=== PATIENT | male | born 1945 | race Caucasian/White ===

== ENCOUNTER → 2017-10-30 | Outpatient (CLI) | payer MEDICARE ==
[~2017-10-30] MED LIST: AMLO5TAB2 PO; ATOR10TA15 PO; DORZ2SOL15 EACH EYE; HYDR12.57 PO; LATA0.002 EACH EYE
[2017-10-30 07:56] LABS: AST (GOT) 28 U/L (15-37); BLOOD UREA NITROGEN 18 MG/DL (7-18); GLOMERULAR FILTRATION RATE 83 ML/MIN (>89); GLUCOSE,FASTING 105 MG/DL (74-99); SODIUM (NA) 138 MEQ/L (136-145)
[2017-10-30 07:57] LABS: ANION GAP 7 MEQ/L (5-15); BICARBONATE 27.1 MEQ/L (21.0-32.0); CHLORIDE 104 MEQ/L (98-107)
[2017-10-30 07:58] LABS: ALT (GPT) 47 U/L (12-78)
[2017-10-30 08:00] LABS: ALKALINE PHOSPHATASE 95 U/L (45-117); HDL CHOLESTEROL 69.4 MG/DL (40.0-60.0); LDL CHOLESTEROL 108 MG/DL (0-99); TOTAL BILIRUBIN ADULT 0.7 MG/DL (0.2-1.0)
[2017-10-30 11:39] LABS: HEMOGLOBIN A1a 1.1 %; HEMOGLOBIN A1b 1.6 %; HEMOGLOBIN Ao 85.9 %; HEMOGLOBIN P3 3.5 %
== END ==
LOC: CLAB 06:56
PROVIDERS: ATTEND Family Medicine
DX: E78.2 Mixed hyperlipidemia (principal); R73.01 Impaired fasting glucose
CPT/HCPCS: 36415; 80053; 80061; 83036

== ENCOUNTER → 2018-05-07 | Outpatient (CLI) | payer MEDICARE ==
[2018-05-07 07:22] LABS: ALKALINE PHOSPHATASE 100 U/L (45-117); ALT (GPT) 38 U/L (12-78); CHOLESTEROL 178 MG/DL (120-200); CHOLESTEROL/ HDL RATIO 3.26 RATIO; HDL CHOLESTEROL 54.5 MG/DL (40.0-60.0); LDL CHOLESTEROL 102 MG/DL (0-99); TOTAL BILIRUBIN ADULT 0.7 MG/DL (0.2-1.0); TOTAL PROTEIN 8.2 GM/DL (6.4-8.2); TRIGLYCERIDES 110 MG/DL (42-150)
[2018-05-07 07:43] LABS: ALBUMIN 3.9 GM/DL (3.4-5.0); AST (GOT) 29 U/L (15-37); BICARBONATE 28.1 MEQ/L (21.0-32.0); BLOOD UREA NITROGEN 20 MG/DL (7-18); CHLORIDE 104 MEQ/L (98-107); CREATININE 0.96 MG/DL (0.60-1.30); GLOMERULAR FILTRATION RATE 77 ML/MIN (>89); GLUCOSE,FASTING 106 MG/DL (74-99); SODIUM (NA) 139 MEQ/L (136-145)
== END ==
LOC: CLAB 06:34
PROVIDERS: ATTEND Family Medicine
DX: E78.2 Mixed hyperlipidemia (principal)
CPT/HCPCS: 36415; 80053; 80061